=== PATIENT | female | born 1960 | race Caucasian/White ===

== ENCOUNTER → 2022-04-02 | Outpatient (CLI) | payer OTHER | LOC: M PLALAB 14:28 | PROVIDERS: ATTEND Surgery | DX: Z15.09 Genetic susceptibility to other malignant neoplasm (principal) ==

== ENCOUNTER → 2022-04-13 | Outpatient (CLI) | payer OTHER | LOC: EDUNIT# 12:30 → M WHC 12:40 | PROVIDERS: ATTEND Surgery | DX: R22.1 Localized swelling, mass and lump, neck (principal); R22.2 Localized swelling, mass and lump, trunk; M79.89 Other specified soft tissue disorders ==

== ENCOUNTER → 2022-04-19 | Outpatient (CLI) | payer OTHER | LOC: M WHC 11:26 | PROVIDERS: ATTEND Surgery | DX: R22.2 Localized swelling, mass and lump, trunk (principal); R92.8 Other abnormal and inconclusive findings on diagnostic imaging of breast ==

== ENCOUNTER → 2022-05-05 | Outpatient (CLI) | payer OTHER ==
[~2022-05-05] MED LIST: HYDR-3490 PO; METO1TAB32 PO
[2022-05-05 17:48] VITALS: BP 130/72
== END ==
LOC: M WHCPRO 14:32
PROVIDERS: ATTEND Surgery
DX: D24.2 Benign neoplasm of left breast (principal); Z90.12 Acquired absence of left breast and nipple

== ENCOUNTER → 2022-05-26 | Outpatient (CLI) | payer OTHER | LOC: M WHCPRO 05-19 13:28 | PROVIDERS: ATTEND Surgery | DX: R22.2 Localized swelling, mass and lump, trunk (principal); Z53.9 Procedure and treatment not carried out, unspecified reason ==

== ENCOUNTER → 2022-06-16 | Outpatient (CLI) | payer OTHER ==
[~2022-06-16] MED LIST changes: +ASPI81CH33 PO; +ROSU40TA4 PO; +VERA120T9 PO
[2022-06-16 15:19] VITALS: BP 122/76
== END ==
LOC: M WHCPRO 13:36
PROVIDERS: ATTEND Surgery
DX: R22.2 Localized swelling, mass and lump, trunk (principal); L90.5 Scar conditions and fibrosis of skin; Z90.12 Acquired absence of left breast and nipple; N63.24 Unspecified lump in the left breast, lower inner quadrant